=== PATIENT | male | born 1980 | race Caucasian/White ===

== ENCOUNTER 2025-05-22 11:20 | Inpatient (IN) | payer MEDICAID ==
[~2025-05-22] VITALS: Ht 177.8 cm; Wt 89.0 kg
[2025-05-22 11:23] VITALS: O2SAT 97
[2025-05-22] MEDS: SODIUM CHLORIDE 0.9% 1,000 ML IV ONE (11:48)
[2025-05-22] MEDS: LORAZEPAM 2MG/ML UD SYRINGE IV NR (12:06)
[2025-05-22 13:29] LABS: BASOPHILS % 0.3 % (0.0-2.0); EOSINOPHILS % 1.4 % (0.0-5.0); HEMATOCRIT. 45.6 % (42.0-52.0); HEMOGLOBIN. 15.1 g/dL (14.0-18.0); LYMPHOCYTES % 24.3 % (20.0-50.0); MEAN PLATELET VOLUME 8.0 fl (7.4-10.4); MONOCYTES % 5.5 % (2.0-8.0); NEUTROPHILS % 68.5 % (40.0-76.0); PLATELET 363 x1000/uL (130-400); RED BLOOD CELL COUNT 5.25 mill/uL (4.7-6.1); RED CELL DISTRIBUTION WIDTH 13.8 % (11.6-14.6)
[2025-05-22 13:44] LABS: CREATININE 1.0 mg/dL (0.6-1.3)
[2025-05-22 13:45] LABS: ETHANOL BLOOD < 10 mg/dL (<10); UREA NITROGEN BLOOD 18 mg/dL (9-23)
[2025-05-22 13:46] LABS: ASPARTATE AMINOTRANSFERASE 32 IU/L (<34)
[2025-05-22 13:47] LABS: BILIRUBIN DIRECT 0.2 mg/dL (<=3.0); BILIRUBIN TOTAL 0.5 mg/dL (0.1-1.0); PROTEIN TOTAL 6.8 g/dL (6.0-8.3)
[2025-05-22 15:25] LABS: *AMPHETAMINES SCREEN URINE PRESUMPTIVE POSITIVE (NEGATIVE); *BARBITURATES SCREEN URINE NEGATIVE (NEGATIVE); *BENZODIAZEPINES SCREEN URINE NEGATIVE (NEGATIVE); *COCAINE SCREEN URINE PRESUMPTIVE POSITIVE (NEGATIVE); CANNABINOID URINE SCREEN PRESUMPTIVE POSITIVE (NEGATIVE); ECSTASY MDMA SCREEN URINE CONF.TEST INDICATED (NEGATIVE); METHADONE URINE SCREEN NEGATIVE (NEGATIVE); OPIATES URINE SCREEN NEGATIVE (NEGATIVE); PHENCYCLIDINE URINE SCREEN NEGATIVE (NEGATIVE)
[2025-05-22 15:40] LABS: CLARITY URINE CLEAR (CLEAR); COLOR URINE YELLOW (YELLOW); GLUCOSE URINE 3+ (NEGATIVE); KETONES URINE NEGATIVE (NEGATIVE); LEUKOCYTE ESTERASE URINE NEGATIVE (NEGATIVE); NITRITE URINE NEGATIVE (NEGATIVE); OCCULT BLOOD URINE NEGATIVE (NEGATIVE); PH URINE 5.0 (4.5-8.0); PROTEIN URINE 2+ (NEGATIVE); SPECIFIC GRAVITY URINE 1.040 (1.005-1.030); UROBILINOGEN URINE 0.2 E.U./dL (0.2-1.0)
[2025-05-22] MEDS ORDERED: ZOLPIDEM TARTRATE 5MG TABLET PO PRN (15:45)
[2025-05-22] MEDS ORDERED: CLONIDINE 0.1MG TABLET PO PRN (15:45)
[2025-05-22] MEDS ORDERED: MAGNESIUM/ALUMINUM HYDROXIDE/SIMETHICONE 30ML UDC PO PRN (15:45)
[2025-05-22] MEDS ORDERED: ONDANSETRON HCL 4MG/2ML INJ IV PRN (15:45)
[2025-05-22] MEDS ORDERED: ACETAMINOPHEN 325MG TABLET PO PRN (15:45)
[2025-05-22] MEDS ORDERED: HYDROCODONE/ACETAMINOPHEN 5/325MG TABLET PO PRN (15:45)
[2025-05-22 16:00] VITALS: BP 117/70; PULSE 108; RESP 17; TEMP 37; O2SAT 96
[2025-05-22] MEDS ORDERED: NALOXONE HCL 0.4MG/ML VIAL IV PRN (16:00)
[2025-05-22] MEDS: SODIUM CHLORIDE 0.9% 1,000 ML IV SCH (16:20)
[2025-05-22 19:01] VITALS: BP 117/70; PULSE 108; RESP 17; TEMP 37.0296
[2025-05-22 19:10] LABS: BACTERIA URINE TRACE; RBC URINE NONE SEEN /hpf (0-2); SQUAMOUS EPITHELIAL CELL URINE FEW /lpf (RARE/1+); WBC URINE 0-2 /hpf (0-2)
[2025-05-22 20:00] VITALS: BP 124/84; PULSE 100; RESP 18; TEMP 36.1; O2SAT 98
[2025-05-22] MEDS: ENOXAPARIN 30MG/0.3ML SYR SUBCUT SCH (21:00)
[2025-05-23] VITALS: BP 148/85; PULSE 102; RESP 16; TEMP 36.9; O2SAT 95
[2025-05-23] MEDS: LORAZEPAM 2MG/ML UD SYRINGE IV PRN (00:10)
[2025-05-23] MEDS: ZIPRASIDONE MESYLATE 20MG/VIAL IM PRN (01:19)
[2025-05-23] MEDS: MVI, ADULT NO.1 10 ML, FOLIC ACID 1 MG, THIAMINE HCL 100 MG in SODIUM CHLORIDE 0.9% 1,0... IV SCH (01:28)
[2025-05-23 04:00] VITALS: BP 114/73; PULSE 94; RESP 19; TEMP 35.9; O2SAT 94
[2025-05-23 07:24] LABS: BASOPHILS % 0.4 % (0.0-2.0); EOSINOPHILS % 1.9 % (0.0-5.0); HEMATOCRIT. 42.6 % (42.0-52.0); HEMOGLOBIN. 14.1 g/dL (14.0-18.0); LYMPHOCYTES % 23.5 % (20.0-50.0); MEAN PLATELET VOLUME 7.5 fl (7.4-10.4); MONOCYTES % 6.6 % (2.0-8.0); NEUTROPHILS % 67.6 % (40.0-76.0); PLATELET 311 x1000/uL (130-400); RED BLOOD CELL COUNT 4.90 mill/uL (4.7-6.1); RED CELL DISTRIBUTION WIDTH 14.0 % (11.6-14.6)
[2025-05-23 07:52] LABS: CREATININE 0.9 mg/dL (0.6-1.3)
[2025-05-23 07:53] LABS: UREA NITROGEN BLOOD 15 mg/dL (9-23)
[2025-05-23 08:00] VITALS: BP 131/82; PULSE 87; RESP 18; TEMP 36.4; O2SAT 95
[2025-05-23] MEDS: PANTOPRAZOLE SODIUM 40 MG/VIAL IV SCH (09:55)
[2025-05-23 12:00] VITALS: BP 123/74; PULSE 73; RESP 15; TEMP 36.1; O2SAT 100
[2025-05-23 16:00] VITALS: BP 130/84; PULSE 80; RESP 18; TEMP 36.3; O2SAT 95
[2025-05-23 20:00] VITALS: BP 115/76; PULSE 80; RESP 18; TEMP 36.3; O2SAT 97
[2025-05-23] MEDS ORDERED: DEXTROSE 50% WATER 50ML SYRINGE IV PRN (20:45)
[2025-05-23] MEDS: INSULIN LISPRO 100 UNITS/ML SUBCUT SCH (21:00)
[2025-05-23] MEDS: BLOOD SUGAR DIAGNOSTIC STRIP TEST SCH (21:00)
[2025-05-24] VITALS: BP 113/80; PULSE 76; RESP 18; TEMP 36.4; O2SAT 98
[2025-05-24 04:00] VITALS: BP 140/82; PULSE 84; RESP 18; TEMP 36.4; O2SAT 93
[2025-05-24] MEDS ORDERED: ENOXAPARIN 40MG/0.4ML SYR SUBCUT SCH (09:00)
== END 2025-05-24 09:15 | disposition left against medical advice (07) | DRG 812 ==
LOC: ER 11:20 → EDBEDREQSVC 14:49 → EDBEDREQ 14:49 → EDBEDREQTM 14:49 → 5WST 15:04
PROVIDERS: ADMIT Internal Medicine; ATTEND Internal Medicine
DX: T43.651A Poisoning by methamphetamines accidental (unintentional), initial encounter (principal); G92.8 Other toxic encephalopathy; Z78.1 Physical restraint status; D72.829 Elevated white blood cell count, unspecified; E11.65 Type 2 diabetes mellitus with hyperglycemia; F12.10 Cannabis abuse, uncomplicated; F14.10 Cocaine abuse, uncomplicated; R65.10 Systemic inflammatory response syndrome (SIRS) of non-infectious origin without acute organ dysfunction; F17.200 Nicotine dependence, unspecified, uncomplicated; Y92.89 Other specified places as the place of occurrence of the external cause; F15.10 Other stimulant abuse, uncomplicated
CPT/HCPCS: 36415; 71045; 80048; 80076; 80305; 80320; 81003; 83036; 83735; 84443; 85025; 86850; 86900; 93005; 93971; 96361; 96374; 99285; J1650; J2060; J2470; J3411; J3486; J3490; J7030; G0480